=== PATIENT | female | born 1975 | race American Indian/Alaskan Native ===

== ENCOUNTER 2016-11-03 10:14 | Outpatient (CLI) | payer OTHER ==
--- NOTE | 2016-11-03 16:33 | Mammography Report ---
Screening mammogram: Routine views are compared to this patient's prior study of October 2014. The patient has a heterogeneously dense fibroglandular pattern. There is lobulation of the breast tissue in the upper-outer right breast without a definable mass. There are similar lobulations on the left however many of these masses are partially circumscribed and are located in both the lateral and medial portions of the superior breast. The largest of these measures roughly 2.3 cm. No calcifications. No architectural distortion. Compared to prior study in October 2014 is no significant change noted in the right breast. The left breast pattern however is more lobulated and several of the partially defined masses are not present on prior study. Prior ultrasound in 2015 demonstrated multiple cysts as well as left echolucent masses. CAD used. Impression: Dense but stable right breast pattern. Interval development of new left breast densities. Recommendation: Global bilateral breast ultrasound. BI-RADS CATEGORY: 0 = Needs additional imaging evaluation ACR BI-RADS MAMMOGRAPHIC CODES: 0 = Needs additional imaging evaluation; 1 = Negative; 2 = Benign; 3 = Probably benign; 4 = Suspicious; 5 = Malignant; 6 = Known biopsy-proven malignancy COMMENT: 1. Dense breast tissue, i.e., adenosis, fibrocystic changes, etc., may obscure an underlying neoplasm. 2. Approximately 10% of cancers are not detected with mammography. 3. A negative mammography report should not delay biopsy if a clinically suspicious mass is present.
== END 2016-11-03 10:15 | disposition home or self-care (01) ==
LOC: SPVWC 10:14
PROVIDERS: ATTEND Surgery
DX: Z12.31 Encounter for screening mammogram for malignant neoplasm of breast (principal)
CPT/HCPCS: 77067; G0202

== ENCOUNTER 2019-02-23 04:45 | Emergency (ER) | payer SELFPAY ==
--- NOTE | 2019-02-23 05:47 | XRay Report ---
CHEST 1 VIEW 5:18 AM INDICATION / CLINICAL INFORMATION: Chest Pain. COMPARISON: None available. FINDINGS: SUPPORT DEVICES: None. HEART / MEDIASTINUM: The heart size is borderline with a left ventricular configuration. There is mil d aortic tortuosity without aneurysm. LUNGS / PLEURA: No significant pulmonary or pleural abnormality. No pneumothorax. ADDITIONAL FINDINGS: No significant additional findings. IMPRESSION: No acute abnormality. Signer Name: Delfino Tirado MD Signed: 02/23/2019 5:42 AM Workstation Name: [id number]
[2019-02-23 05:51] LABS: Hematocrit 33.9 % (30.3-42.9); Hemoglobin 11.3 gm/dl (10.1-14.3); Mean Corpuscular HGB Conc 33 % (30-34); Mean Corpuscular Volume 92 fl (79-97); Platelet Count 232 K/mm3 (140-440); Red Blood Count 3.71 M/mm3 (3.65-5.03); Red Cell Distribution Width 16.1 % (13.2-15.2)
[2019-02-23 06:16] LABS: BUN/Creatinine Ratio 25; Blood Urea Nitrogen 15 mg/dL (7-17); Calcium 9.5 mg/dL (8.4-10.2); Hemolysis Index 1
[2019-02-23] MEDS ORDERED: hydrALAZINE 20 MG/1 ML INJ IV ONE (06:26)
--- NOTE | 2019-02-23 06:39 | Emergency Department Report ---
HPI - General Chief Complaint: Chest Pain Time Seen by Provider: 02/23/19 06:00 - HPI HPI: 43-year-old female presents to the emergency department with the complaint of a 1-2 day history of some intermittent numbness and pain to the distal left arm. She says that the symptoms have kept her from getting any sleep for the past 2 nights. Patient presents with elevated blood pressure and says that she is taking low-dose propanolol but that this was not the medication originally prescribed by her PCP, Dr. Vang. She denies any headache, vision change, facial droop, slurred speech, chest pain, shortness of breath. The patient has a history of hypertension and anxiety. The patient also admits to going through a separation and divorce, among other stressors. No recent travel or sick contacts at home. ED Past Medical Hx - Past Medical History Previous Medical History?: Yes Hx Hypertension: Yes Hx Psychiatric Treatment: Yes (anxiety) - Surgical History Past Surgical History?: No - Social History Smoking Status: Current Every Day Smoker Substance Use Type: None - Medications Home Medications: Home Medications Medication Instructions Recorded Confirmed Last Taken Type Amlodipine Besylate [Norvasc] 5 mg PO QDAY #30 tablet 02/23/19 Unknown Rx ED Review of Systems ROS: Stated complaint: CHEST PAIN,LEFT ARM NUMBNESS Other details as noted in HPI Comment: All other systems reviewed and negative Constitutional: denies: chills, fever Eyes: denies: eye pain, vision change ENT: denies: ear pain, throat pain Respiratory: denies: cough, shortness of breath Cardiovascular: denies: palpitations, edema Gastrointestinal: denies: abdominal pain, vomiting Genitourinary: denies: dysuria, discharge Musculoskeletal: myalgia. denies: back pain Skin: denies: rash, lesions Neurological: numbness. denies: headache, weakness, paresthesias Physical Exam - Physical Exam Vital Signs: Vital Signs 02/23/19 04:48 Temperature 97.5 F L Pulse Rate 84 Respiratory 18 Rate Blood Pressure 198/122 O2 Sat by Pulse 97 Oximetry Physical Exam: GENERAL: The patient is well-developed well-nourished. HEENT: Normocephalic. Atraumatic. Patient has moist mucous membranes. EYES: Extraocular motions are intact. NECK: Supple. Trachea is midline. CHEST/LUNGS: Clear to auscultation. There is no respiratory distress noted. HEART/CARDIOVASCULAR: Regular. There is no tachycardia. There is no murmur. ABDOMEN: Abdomen is soft, nontender. Patient has normal bowel sounds. There is no abdominal distention. SKIN:Skin is warm and dry. . NEURO: The patient is awake, alert, and oriented. The patient is cooperative. The patient has no focal neurologic deficits. Normal speech. MUSCULOSKELETAL: There is no tenderness or deformity. There is no limitation range of motion. There is no evidence of acute injury. ED Course Vital Signs 02/23/19 04:48 Temperature 97.5 F L Pulse Rate 84 Respiratory 18 Rate Blood Pressure 198/122 O2 Sat by Pulse 97 Oximetry ED Medical Decision Making - Lab Data Result diagrams: 02/23/19 05:30 02/23/19 05:30 - EKG Data -: EKG Interpreted by Me EKG shows normal: sinus rhythm, axis (left axis deviation), intervals, QRS complexes (LVH), ST-T waves Rate: normal - EKG Data When compared to previous EKG there are: previous EKG unavailable Interpretation: LVH - Radiology Data Radiology results: image reviewed interpreted by me: Chest x-ray does not show any pleural effusions, pneumonia, pneumothorax, focal consolidation, or any other acute process. - Medical Decision Making This patient presented to the emergency department with a complaint of a headache and chest pain that has since resolved and very elevated blood pressure. The patient takes very low dose propanolol and says she is compliant. However she is a smoker and also has been dealing with a lot of personal stres s and anxiety. Her EKG did not show any signs of ST elevation MO, ischemia or dysrhythmia. Her labs have been unremarkable including negative troponins 2. She is low on the heart and YOUSIF score. The patient was reevaluated multiple times for multiple hours and her symptoms have not returned. She was given a dose of hydralazine and her blood pressure came down to a much more reasonable level and stayed that way throughout the rest of her ED course. She has good follow-up with primary care. Her information has been sent over to [facility] for close outpatient follow-up. The patient will be started on Norvasc. We discussed keeping a blood pressure log. The patient will return to the emergency Department with any worsening of her symptoms or any acute distress. - Differential Diagnosis MO, hypertensive crisis, hyperthyroidism, costochondritis, anxiety Critical Care Time: No Critical care attestation.: If time is entered above; I have spent that time in minutes in the direct care of this critically ill patient, excluding procedure time. ED Disposition Clinical Impression: Numbness of hand Hypertension Qualifiers: Hypertension type: essential hypertension Qualified Code(s): I10 - Essential (primary) hypertension Chest pain Qualifiers: Chest pain type: unspecified Qualified Code(s): R07.9 - Chest pain, unspecified Disposition: TO HOME OR SELFCARE Is pt being admited?: No Condition: Stable Instructions: Chest Pain (ED), Hypertension (ED) Additional Instructions: Please follow up with your primary care physician in the next few days. I am sending your contact information over to [facility] heart cardiology and someone should be contacting you shortly for close outpatient follow-up. Return to the emergency Department with any worsening of your symptoms or any acute distress. I am starting you on a blood pressure medication called Norvasc/amlodipine. Th is medication is taken once per day, usually in the morning. Try and stay away from foods that are high in salt and caffeinated products. Keep a blood pressure log. Prescriptions: Amlodipine Besylate [Norvasc] 5 mg PO QDAY #30 tablet Referrals: [facility] [Provider Group] - 2-3 Days PCP, Your [Other] - 2-3 Days Time of Disposition: 09:32 Heart Score - HEART Score History: Slightly suspicious EKG: Normal Age: < 45 Risk factors: 1-2 risk factors Troponin: < normal limit HEART Score: 1 - Critical Actions Critical Actions: 0-3 pts:0.9-1.7%risk of adverse cardiac event.Candidate for discharge
[2019-02-23 08:04] LABS: Basophils % (Manual) 0 % (0.0-1.8); Platelet Estimate Consistent w Auto; RBC Morphology Normal; Total Cells Counted 100
[2019-02-23] MEDS ORDERED: IBUPROFEN 800 MG TAB ONE (08:46)
[2019-02-23] MEDS ORDERED: IBUPROFEN 800 MG TAB PO ONE (08:56)
[2019-02-23 10:00] VITALS: BP 143/89
== END 2019-02-23 08:45 | disposition home or self-care (01) ==
LOC: ED 04:45
DX: R20.0 Anesthesia of skin (principal); I10 Essential (primary) hypertension; R07.9 Chest pain, unspecified; F41.9 Anxiety disorder, unspecified; F17.200 Nicotine dependence, unspecified, uncomplicated
CPT/HCPCS: 36415; 71045; 80048; 84443; 84484; 84703; 85007; 85025; 93005; 93010; 96374; 99284; J0360